=== PATIENT | female | born 1945 | race American Indian/Alaskan Native ===

== ENCOUNTER 2018-07-15 09:15 | Day surgery (SDC) | payer MEDICARE ==
[2017-01-23 08:06] VITALS: BMI 39.1
[2018-07-15] MEDS ORDERED: Propofol 10 mg/ml Inj (20 ML) ONE (10:39)
[2018-07-15 13:11] VITALS: TEMP 97.5
[2018-07-15 13:12] VITALS: BP 117/60; RESP 19
[2018-07-15 13:17] VITALS: PULSE 66; O2SAT 98
== END 2018-07-15 12:24 | disposition home or self-care (01) ==
LOC: C.ENDO 09:15
PROVIDERS: ATTEND Internal Medicine Gastroenterology
DX: Z12.11 Encounter for screening for malignant neoplasm of colon (principal); K64.1 Second degree hemorrhoids; Z85.038 Personal history of other malignant neoplasm of large intestine; Z98.0 Intestinal bypass and anastomosis status; I10 Essential (primary) hypertension; E78.5 Hyperlipidemia, unspecified; E11.9 Type 2 diabetes mellitus without complications
CPT/HCPCS: 82948; G0105; J2704; J7040